=== PATIENT | female | born 1945 | race Caucasian/White ===

== ENCOUNTER 2021-06-10 19:26 | Inpatient (IN) ==
[2021-06-11] MEDS ORDERED: Naloxone 0.4 MG/ML INJ IVP PRN (00:53)
[2021-06-11 02:34] LABS: Basophils # 0.1 K/mcL (0.0-0.2); Basophils % 0.5 %; Eosinophils # 0.2 K/mcL (0.0-0.6); Eosinophils % 1.4 %; Hematocrit 29.9 % (35.3-44.9); Hemoglobin 9.2 g/dL (11.5-15.4); Immature Granulocytes % 1.5 % (0-4); Lymphocytes # 0.6 K/mcL (0.6-4.6); Lymphocytes % 4.3 %; Mean Corpuscular HGB Conc 30.8 g/dL (31.6-35.5); Mean Corpuscular Hemoglobin 30.4 pg (28.0-33.3); Mean Corpuscular Volume 98.7 fL (83.0-100.0); Mean Platelet Volume 10.7 fL (9.4-12.4); Monocytes # 0.8 K/mcL (0.0-1.3); Monocytes % 6.3 %; Platelet Count 283 K/mcL (140-400); Red Blood Count 3.03 M/mcL (3.82-4.97); Red Cell Distribution Width 13.4 % (11.5-14.5); White Blood Count 12.8 K/mcL (4.3-11.1)
[2021-06-11 02:43] LABS: INR 1.4; Prothrombin Time 15.9 Seconds (9.4-12.1)
[2021-06-11 02:46] LABS: Activated Partial Thrombo Time 30.8 Seconds (26.0-36.0)
[2021-06-11 02:52] LABS: Albumin 3.2 g/dL (3.5-5.7); Bilirubin,Total 0.4 mg/dL (0.3-1.0); Calcium 8.2 mg/dL (8.6-10.3); Globulin 3.1 g/dL (2.4-3.5); Phosphorous 6.9 mg/dL (2.7-4.5); Potassium 6.2 mEq/L (3.5-5.1); Total Protein 6.3 g/dL (6.4-8.9)
[2021-06-11 03:07] LABS: Troponin I 0.15 ng/mL (< 0.04)
[2021-06-11] MEDS ORDERED: Calcium Gluconate 1gm/50mL 1 GM/50 ML BAG IVPB PRN (03:13)
[2021-06-11] MEDS ORDERED: Insulin Human Regular 10 UNIT in 0.9 % Sodium Chloride 10 ML IV ONE (03:15)
[2021-06-11] MEDS ORDERED: *HR* Dextrose 50 % in Water (Vial) 50 ML VIAL IVP ONE (03:15)
[2021-06-11] MEDS ORDERED: Albuterol 2.5 MG/3 ML NEBULIZER IH ONE (03:30)
[2021-06-11] MEDS: SODIUM ZIRCONIUM CYCLOSILICATE 5 GM POWD.PACK PO SCH ×2 (04:41→09:44)
[2021-06-11] MEDS ORDERED: D5% in Water 1,000 ML IVC PRN (05:05)
[2021-06-11] MEDS ORDERED: *HR* Dextrose 50 % in Water (Vial) 50 ML VIAL IVP PRN (05:05)
[2021-06-11] MEDS ORDERED: Dextrose Gel 15 GM/37.5 ML TUBE PO PRN ×2 (05:05)
[2021-06-11] MEDS ORDERED: Furosemide 40 MG/4 ML VIAL IVP ONE (05:06)
[2021-06-11] MEDS ORDERED: Perflutren Lipid Microsphere 1.3 ML in 0.9 % Sodium Chloride 8.7 ML IVP PRN (05:11)
[2021-06-11 06:27] LABS: Bacteria,Urine Few per hpf (None-Few); Bilirubin,Urine Negative (Negative); Blood,Urine Moderate (Negative); Clarity,Urine Turbid (Clear); Color,Urine Yellow (Yellow); Glucose,Urine (UA) 300 mg/dL (Normal); Ketones,Urine Negative (Negative); Leukocyte Esterase,Urine Large (Negative); Nitrite,Urine Negative (Negative); PH,Urine 6.5 pH Units (5.0-8.0); Protein,Urine 100 mg/dL (Neg-Trace); Specific Gravity,Urine 1.015 (1.010-1.025); Urobilinogen,Urine Normal (Normal); WBC,Urine TNTC per hpf (0-3)
[2021-06-11] MEDS ORDERED: 0.9 % Sodium Chloride 250 ML IVC PRN (07:28)
[2021-06-11] MEDS ORDERED: *HR* Heparin 10,000 UNIT/10 ML VIAL IV PRN (07:28)
[2021-06-11] MEDS ORDERED: 0.9 % Sodium Chloride 1,000 ML PRIME SCH (07:30)
[2021-06-11] MEDS: Insulin LISPRO 300 UNITS/3 ML VIAL SUBQ SCH ×3 (08:21→17:09)
[2021-06-11] MEDS ORDERED: Heparin 1,000 UNITS/500 mL 500 ML ONE (10:07)
[2021-06-11] MEDS ORDERED: Lidocaine/EPI 1:100k 1% 50 ML VIAL ONE (10:07)
[2021-06-11] MEDS ORDERED: Clindamycin 600 MG/50 ML 600 MG/50 ML IV.SOLN IVPB STA (11:14)
[2021-06-11] MEDS ORDERED: *HR* Heparin 5,000 UNIT/ML VIAL ONE (11:14)
[2021-06-11 13:56] LABS: Potassium 4.6 mEq/L (3.5-5.1); Troponin I 0.57 ng/mL (< 0.04)
[2021-06-11] MEDS ORDERED: Iron Sucrose Complex 400 MG in 0.9 % Sodium Chloride 250 ML IVPB ONE (14:05)
[2021-06-11 14:14] LABS: Carcinoembryonic Antigen 294.1 ng/mL (Less than 5.0)
[2021-06-11 14:20] LABS: Hepatitis B Surface Antibody 85.42 mIU/mL
[2021-06-11] MEDS: Nystatin POWDER 30 GM BOTTLE TP SCH ×2 (14:22→21:44)
[2021-06-11 14:31] LABS: Hepatitis B Surface Antigen Nonreactive (Nonreactive)
[2021-06-11 15:11] LABS: Folate 9.5 ng/mL (3.0-16.0)
[2021-06-11] MEDS: cefTRIAXone 1,000 MG in Water for inj. (sterile) 10 ML IVP SCH (16:03)
[2021-06-11] MEDS: Acetaminophen 325 MG TABLET PO PRN ×2 (16:26→22:38)
[2021-06-11] MEDS ORDERED: SODIUM CHLORIDE/NAHCO3/KCL/PEG 4,000 ML SOLN.RECON PO ONE (17:00)
[2021-06-11 17:28] LABS: Adenovirus Not Detected (Not Detect); Bordetella Pertussis Not Detected (Not Detect); Chlamydophila pneumoniae Not Detected (Not Detect); Coronavirus 229E Not Detected (Not Detect); Coronavirus HKU1 Not Detected (Not Detect); Coronavirus NL63 Not Detected (Not Detect); Coronavirus OC43 Not Detected (Not Detect); Human Metapneumovirus Not Detected (Not Detect); Human Rhinovirus/Enterovirus Not Detected (Not Detect); Influenza A Subtype 2009 H1 Not Detected (Not Detect); Influenza B Not Detected (Not Detect); Mycoplasma pneumoniae Not Detected (Not Detect); Parainfluenza Virus 1 Not Detected (Not Detect); Parainfluenza Virus 2 Not Detected (Not Detect); Parainfluenza Virus 3 Not Detected (Not Detect); Parainfluenza Virus 4 Not Detected (Not Detect); Respiratory Syncytial Virus Not Detected (Not Detect); SARS-CoV-2 Not Detected (Not Detect)
[2021-06-11] MEDS: Gabapentin 300 MG CAPSULE PO SCH (21:43)
[2021-06-11] MEDS: *HR* Heparin 5,000 UNIT/ML VIAL SQ SCH (21:43)
[2021-06-12] MEDS: *HR* Heparin 5,000 UNIT/ML VIAL SQ SCH ×3 (05:45→23:34)
[2021-06-12 06:46] LABS: Calcium 7.4 mg/dL (8.6-10.3); Potassium 4.5 mEq/L (3.5-5.1)
[2021-06-12] MEDS: Insulin LISPRO 300 UNITS/3 ML VIAL SUBQ SCH ×3 (07:12→17:20)
[2021-06-12] MEDS: Calcium Acetate 667 MG CAPSULE PO SCH ×3 (07:13→17:44)
[2021-06-12] MEDS ORDERED: 0.9 % Sodium Chloride 250 ML IVC PRN (07:17)
[2021-06-12] MEDS ORDERED: *HR* Heparin 10,000 UNIT/10 ML VIAL IV PRN (07:17)
[2021-06-12] MEDS: Nystatin POWDER 30 GM BOTTLE TP SCH ×2 (08:05→19:46)
[2021-06-12] MEDS: SODIUM ZIRCONIUM CYCLOSILICATE 5 GM POWD.PACK PO SCH (08:46)
[2021-06-12] MEDS ORDERED: Iron Sucrose Complex 250 MG in 0.9 % Sodium Chloride 250 ML IVPB ONE ×2 (10:07→16:00)
[2021-06-12] MEDS: Gabapentin 300 MG CAPSULE PO SCH ×3 (10:12→19:44)
[2021-06-12] MEDS: cefTRIAXone 1,000 MG in Water for inj. (sterile) 10 ML IVP SCH (12:32)
[2021-06-12] MEDS: amLODIPine 5 MG TABLET PO SCH (12:32)
[2021-06-12] MEDS ORDERED: SODIUM CHLORIDE/NAHCO3/KCL/PEG 4,000 ML SOLN.RECON PO ONE (17:00)
[2021-06-13] MEDS: *HR* Heparin 5,000 UNIT/ML VIAL SQ SCH (05:26)
[2021-06-13 05:38] LABS: Hematocrit 24.4 % (35.3-44.9); Hemoglobin 7.9 g/dL (11.5-15.4); Mean Corpuscular HGB Conc 32.4 g/dL (31.6-35.5); Mean Corpuscular Hemoglobin 31.9 pg (28.0-33.3); Mean Corpuscular Volume 98.4 fL (83.0-100.0); Mean Platelet Volume 11.4 fL (9.4-12.4); Platelet Count 232 K/mcL (140-400); Red Blood Count 2.48 M/mcL (3.82-4.97); Red Cell Distribution Width 13.2 % (11.5-14.5); White Blood Count 9.4 K/mcL (4.3-11.1)
[2021-06-13 05:43] LABS: Calcium 7.4 mg/dL (8.6-10.3); Potassium 3.9 mEq/L (3.5-5.1)
[2021-06-13] MEDS: Insulin LISPRO 300 UNITS/3 ML VIAL SUBQ SCH ×3 (07:17→17:39)
[2021-06-13] MEDS: Calcium Acetate 667 MG CAPSULE PO SCH ×3 (07:18→17:39)
[2021-06-13] MEDS ORDERED: *HR* Heparin 10,000 UNIT/10 ML VIAL IV PRN (07:22)
[2021-06-13] MEDS ORDERED: 0.9 % Sodium Chloride 250 ML IVC PRN (07:22)
[2021-06-13] MEDS: cefTRIAXone 1,000 MG in Water for inj. (sterile) 10 ML IVP SCH (08:31)
[2021-06-13] MEDS: Cyanocobalamin (B-12) 1,000 MCG/ML VIAL SQ SCH (08:32)
[2021-06-13] MEDS: Nystatin POWDER 30 GM BOTTLE TP SCH (08:32)
[2021-06-13] MEDS ORDERED: Calcium Gluconate 1gm/50mL 1 GM/50 ML BAG IVPB ONE ×2 (08:35→15:30)
[2021-06-13] MEDS ORDERED: *HR* Propofol 200 MG/20 ML VIAL IVP ONE ×2 (12:51→14:24)
[2021-06-13] MEDS ORDERED: *HR* Etomidate 40 MG/20 ML VIAL IVP ONE (12:51)
[2021-06-13] MEDS ORDERED: Lidocaine -MPF 2% 5 ML VIAL ONE (12:51)
[2021-06-13] MEDS ORDERED: EPHEDrine 50 MG/ML VIAL ONE (12:59)
[2021-06-13] MEDS: amLODIPine 5 MG TABLET PO SCH (15:18)
[2021-06-13] MEDS ORDERED: Isovue-370 500 ML BOTTLE IVP ONE (15:59)
[2021-06-13] MEDS: Albuterol 2.5 MG/3 ML NEBULIZER IH PRN (17:48)
[2021-06-14 07:50] LABS: Hematocrit 27.4 % (35.3-44.9); Hemoglobin 8.7 g/dL (11.5-15.4); Mean Corpuscular HGB Conc 31.8 g/dL (31.6-35.5); Mean Corpuscular Hemoglobin 31.5 pg (28.0-33.3); Mean Corpuscular Volume 99.3 fL (83.0-100.0); Mean Platelet Volume 11.7 fL (9.4-12.4); Platelet Count 186 K/mcL (140-400); Red Blood Count 2.76 M/mcL (3.82-4.97); Red Cell Distribution Width 13.3 % (11.5-14.5); White Blood Count 8.4 K/mcL (4.3-11.1)
[2021-06-14 08:17] LABS: Calcium 7.7 mg/dL (8.6-10.3); Potassium 4.2 mEq/L (3.5-5.1)
[2021-06-14] MEDS: Cyanocobalamin (B-12) 1,000 MCG/ML VIAL SQ SCH (08:20)
[2021-06-14] MEDS: cefTRIAXone 1,000 MG in Water for inj. (sterile) 10 ML IVP SCH (08:20)
[2021-06-14] MEDS: amLODIPine 5 MG TABLET PO SCH (08:21)
[2021-06-14] MEDS: Insulin LISPRO 300 UNITS/3 ML VIAL SUBQ SCH ×3 (08:22→18:21)
[2021-06-14] MEDS: Calcium Acetate 667 MG CAPSULE PO SCH ×3 (08:22→15:44)
[2021-06-14] MEDS: Nystatin POWDER 30 GM BOTTLE TP SCH ×2 (18:20→20:26)
[2021-06-14] MEDS: Gabapentin 300 MG CAPSULE PO SCH (20:25)
[2021-06-15 03:06] LABS: Hematocrit 24.9 % (35.3-44.9); Hemoglobin 7.9 g/dL (11.5-15.4); Mean Corpuscular HGB Conc 31.7 g/dL (31.6-35.5); Mean Corpuscular Hemoglobin 31.3 pg (28.0-33.3); Mean Corpuscular Volume 98.8 fL (83.0-100.0); Mean Platelet Volume 10.9 fL (9.4-12.4); Platelet Count 249 K/mcL (140-400); Red Blood Count 2.52 M/mcL (3.82-4.97); Red Cell Distribution Width 13.3 % (11.5-14.5); White Blood Count 8.2 K/mcL (4.3-11.1)
[2021-06-15 03:25] LABS: Calcium 7.7 mg/dL (8.6-10.3); Potassium 3.8 mEq/L (3.5-5.1)
[2021-06-15] MEDS: Insulin LISPRO 300 UNITS/3 ML VIAL SUBQ SCH ×3 (09:21→16:18)
[2021-06-15] MEDS: amLODIPine 5 MG TABLET PO SCH (09:22)
[2021-06-15] MEDS: Cyanocobalamin (B-12) 1,000 MCG/ML VIAL SQ SCH (09:22)
[2021-06-15] MEDS: Nystatin POWDER 30 GM BOTTLE TP SCH ×3 (09:22→19:53)
[2021-06-15] MEDS: Calcium Acetate 667 MG CAPSULE PO SCH ×3 (09:22→16:18)
[2021-06-15] MEDS: cefTRIAXone 1,000 MG in Water for inj. (sterile) 10 ML IVP SCH (09:22)
[2021-06-15] MEDS: Gabapentin 300 MG CAPSULE PO SCH ×2 (13:25→19:52)
[2021-06-16 03:13] LABS: Basophils # 0.1 K/mcL (0.0-0.2); Eosinophils # 0.4 K/mcL (0.0-0.6); Eosinophils % 5.1 %; Hematocrit 27.4 % (35.3-44.9); Hemoglobin 8.7 g/dL (11.5-15.4); Immature Granulocytes % 3.6 % (0-4); Lymphocytes # 0.8 K/mcL (0.6-4.6); Lymphocytes % 9.4 %; Mean Corpuscular HGB Conc 31.8 g/dL (31.6-35.5); Mean Corpuscular Hemoglobin 31.4 pg (28.0-33.3); Mean Corpuscular Volume 98.9 fL (83.0-100.0); Monocytes # 0.9 K/mcL (0.0-1.3); Monocytes % 10.3 %; Neutrophils # 6.1 K/mcL (1.6-8.9); Nucleated Red Blood Cells 0.2 /100 WBC (0); Platelet Count 242 K/mcL (140-400); Red Blood Count 2.77 M/mcL (3.82-4.97); Red Cell Distribution Width 13.5 % (11.5-14.5); Segmented Neutrophils % 70.6 %; White Blood Count 8.6 K/mcL (4.3-11.1)
[2021-06-16] MEDS: Cyanocobalamin (B-12) 1,000 MCG/ML VIAL SQ SCH (09:09)
[2021-06-16] MEDS: Calcium Acetate 667 MG CAPSULE PO SCH ×3 (09:09→16:42)
[2021-06-16] MEDS: cefTRIAXone 1,000 MG in Water for inj. (sterile) 10 ML IVP SCH (09:09)
[2021-06-16] MEDS: Insulin LISPRO 300 UNITS/3 ML VIAL SUBQ SCH ×4 (09:10→20:34)
[2021-06-16] MEDS: Nystatin POWDER 30 GM BOTTLE TP SCH ×2 (09:10→20:33)
[2021-06-16] MEDS: amLODIPine 5 MG TABLET PO SCH (09:10)
[2021-06-16] MEDS: Albuterol 2.5 MG/3 ML NEBULIZER IH PRN (09:58)
[2021-06-16 10:30] LABS: Calcium 7.9 mg/dL (8.6-10.3); Potassium 3.9 mEq/L (3.5-5.1)
[2021-06-16] MEDS: Gabapentin 300 MG CAPSULE PO SCH (20:34)
[2021-06-17 02:25] LABS: Basophils # 0.1 K/mcL (0.0-0.2); Basophils % 0.9 %; Eosinophils # 0.4 K/mcL (0.0-0.6); Eosinophils % 4.3 %; Hematocrit 26.2 % (35.3-44.9); Hemoglobin 8.3 g/dL (11.5-15.4); Immature Granulocytes % 4.5 % (0-4); Lymphocytes % 9.9 %; Mean Corpuscular HGB Conc 31.7 g/dL (31.6-35.5); Mean Corpuscular Hemoglobin 31.3 pg (28.0-33.3); Mean Corpuscular Volume 98.9 fL (83.0-100.0); Monocytes # 0.9 K/mcL (0.0-1.3); Monocytes % 9.4 %; Neutrophils # 6.9 K/mcL (1.6-8.9); Nucleated Red Blood Cells 0.3 /100 WBC (0); Platelet Count 247 K/mcL (140-400); Red Blood Count 2.65 M/mcL (3.82-4.97); Red Cell Distribution Width 13.9 % (11.5-14.5); White Blood Count 9.7 K/mcL (4.3-11.1)
[2021-06-17] MEDS ORDERED: 0.9 % Sodium Chloride 250 ML IVC PRN ×2 (07:51→08:00)
[2021-06-17] MEDS ORDERED: *HR* Heparin 10,000 UNIT/10 ML VIAL IV PRN ×2 (07:51→08:00)
[2021-06-17] MEDS: Insulin LISPRO 300 UNITS/3 ML VIAL SUBQ SCH ×4 (08:45→22:19)
[2021-06-17] MEDS: Cyanocobalamin (B-12) 1,000 MCG/ML VIAL SQ SCH (08:46)
[2021-06-17] MEDS: Calcium Acetate 667 MG CAPSULE PO SCH ×3 (08:46→18:22)
[2021-06-17] MEDS: amLODIPine 5 MG TABLET PO SCH (08:46)
[2021-06-17] MEDS: cefTRIAXone 1,000 MG in Water for inj. (sterile) 10 ML IVP SCH (08:47)
[2021-06-17] MEDS: Nystatin POWDER 30 GM BOTTLE TP SCH ×2 (08:48→22:21)
[2021-06-17] MEDS: Gabapentin 300 MG CAPSULE PO SCH (22:20)
[2021-06-18 01:54] LABS: Basophils # 0.1 K/mcL (0.0-0.2); Basophils % 0.5 %; Eosinophils # 0.4 K/mcL (0.0-0.6); Eosinophils % 3.7 %; Hematocrit 25.7 % (35.3-44.9); Hemoglobin 8.1 g/dL (11.5-15.4); Immature Granulocytes % 5.2 % (0-4); Lymphocytes % 10.6 %; Mean Corpuscular HGB Conc 31.5 g/dL (31.6-35.5); Mean Corpuscular Hemoglobin 31.3 pg (28.0-33.3); Mean Corpuscular Volume 99.2 fL (83.0-100.0); Mean Platelet Volume 11.1 fL (9.4-12.4); Monocytes # 0.8 K/mcL (0.0-1.3); Monocytes % 8.6 %; Neutrophils # 6.7 K/mcL (1.6-8.9); Nucleated Red Blood Cells 0.2 /100 WBC (0); Platelet Count 223 K/mcL (140-400); Red Blood Count 2.59 M/mcL (3.82-4.97); Red Cell Distribution Width 14.2 % (11.5-14.5); Segmented Neutrophils % 71.4 %; White Blood Count 9.4 K/mcL (4.3-11.1)
[2021-06-18 02:13] LABS: Potassium 3.7 mEq/L (3.5-5.1)
[2021-06-18 02:32] LABS: Platelet Estimate Normal (Normal)
[2021-06-18] MEDS: Calcium Acetate 667 MG CAPSULE PO SCH ×2 (09:22→12:00)
[2021-06-18] MEDS: Cyanocobalamin (B-12) 1,000 MCG/ML VIAL SQ SCH (09:25)
[2021-06-18] MEDS: amLODIPine 5 MG TABLET PO SCH (09:25)
[2021-06-18] MEDS: Insulin LISPRO 300 UNITS/3 ML VIAL SUBQ SCH ×2 (09:25→12:00)
[2021-06-18 11:07] VITALS: BP 148/64; PULSE 81; TEMP 98.1; O2SAT 96
[2021-06-18] MEDS: Nystatin POWDER 30 GM BOTTLE TP SCH (12:07)
== END 2021-06-18 16:00 | disposition home or self-care (01) | DRG 291 ==
LOC: 2NENU → SUATTDRO 23:51
PROVIDERS: ADMIT Internal Medicine; ATTEND Internal Medicine
PROC: ENDOCBX (2021-06-13 13:00)